=== PATIENT | male | born 1975 | race African-American/Black ===

== ENCOUNTER 2018-07-02 16:51 | Emergency (ER) | payer OTHER, SELFPAY ==
[2018-07-02 16:56] VITALS: BP 142/84; PULSE 68; RESP 16; TEMP 36.7; O2SAT 99
--- NOTE | 2018-07-02 17:38 | ED.GENADUL_ITS ---
Discharge Plan Disposition Patient Disposition: HOME Condition: Stable Discharge Details Chief Complaint: Nk/Back Pain Clinical Impression: Back pain due to injury Primary Care Provider: Oneyda Harris ED Provider: Naveen Morrison Home Meds and New Rx's Prescriptions: New ibuprofen [IBU] 600 mg tablet 600 mg PO QID PRN (Reason: pain) Qty: 20 RF: 0 cyclobenzaprine 10 mg tablet 10 mg PO TID PRN (Reason: muscle spasm) Qty: 10 RF: 0 No Action No Known Home Meds RF: 0 Discharge Instructions Instructions: Back Pain (ED) Additional Instructions: Return to the emergency department for any new or significant worsening of symptoms, any obvious blood in your urine, or any further concerns. Otherwise take ibuprofen and muscle relaxer as needed for discomfort and follow-up with your primary care provider as needed for reassessment. Referrals: Oneyda Harris [Primary Care Provider] - (As needed for reassessment) Discharge Data Discharge Date/Time-TO BE ENTERED AT DEPARTURE: 07/02/18 18:41 Medical Decision Making Patient presenting to the emergency department for chief complaint of left-sided back and flank pain. Patient states yesterday while at work he was backing up to take a picture and backed into a rounded cornered shelf. Since then he has had back discomfort that seems to worsen with movement and is moderate amount of pain constant but with some positional changes he does have sharp pain. Patient states that he thought it was a simple back injury until today when he noted some discoloration to his urine stating that it may have been more orange in color. Physical exam shows paraspinal tenderness to the left thoracic paraspinal region, normal compression and no tenderness to ribs, no vertebral tenderness or step-off deformity noted, no ecchymosis, no abrasion, no CVA tenderness, positive straight leg raise on the left and not on the right, normal abdominal exam, normal cardiac and respiratory exam as well. Patient has no neurological dysfunction lower to extremity. Given mechanism of injury and physical exam I feel that this is more consistent with soft tissue injury to the paraspinal muscles on the left thoracic lumbar spine. Have very low suspicion for renal injury even though patient states some discoloration of urine. Given this though I do plan on checking urinalysis but given low mechanism of injury I do not feel that patient needs emergent CT scan at this time unless urine is positive. Pending results patient given lidocaine patch and ibuprofen. Review of urinalysis shows high specific gravity, positive for proteins and ketones along with urobilinogen but otherwise negative for blood on both urine dip and microscopic analysis. This is otherwise unremarkable. I feel that patient is noting discoloration of urine may be more due to concentration than actual renal injury. Given this I discussed risk versus benefit with patient of CT imaging and my recommendation to hold on CT imaging at this time and to take another 24 hours to observe his discomfort while using ibuprofen and Flexeril for pain control. Patient was agreeable to this plan of care. Return precautions were discussed. After discussion of diagnosis and plan of care patient has no further needs, questions, or concerns and states clear understanding to return to the emergency department for any worsening symptoms. HPI General Mode of arrival: ambulatory . Date/Time Provider Initiated Documentation: 07/02/18 17:04 . Limitations to Documentation: no limitations . Information obtained by: patient . History of Present Illness 43 year old M p resents to the emergency department with the chief complaint of left back pain, with intensity rated at 5. Quality is described as aching and sharp, and is localized to the back. Patient started experiencing this day(s) (1) and it has been constant and intermittent (sharp). No relieving factors improve symptom(s), Movement worsens symptoms . Patient did receive the following treatments prior to arrival, none Related Data Home Medications Medication Instructions Recorded Confirmed Unknown [No Known Home Meds] 07/02/18 07/02/18 cyclobenzaprine 10 mg PO TID PRN #10 tab 07/02/18 ibuprofen [IBU] 600 mg PO QID PRN #20 tab 07/02/18 Previous Rx's Medication Instructions Recorded cyclobenzaprine 10 mg PO TID PRN #10 tab 07/02/18 ibuprofen [IBU] 600 mg PO QID PRN #20 tab 07/02/18 Allergies Allergy/AdvReac Type Severity Reaction Status Date / Time No Known Allergies Allergy Unverified 07/02/18 17:18 General Stated Complaint: Nk/Back Pain JENNIFER: 3 Review of Systems Constitutional Denies fever(s) Cardiovascular Denies chest pain and Denies dyspnea Respiratory Denies dyspnea Genitourinary Reports hematuria (possible) and Reports flank pain Musculoskeletal Denies abnormal gait, Reports back pain, Denies deformity, Denies muscle weakness and Denies radiating pain into limb Neurologic Denies abnormal gait PFSH Medical History Hyperlipidemia Hypertension Surgical History excision of ganglion cyst of right thumb (07/08/17) Social History Smoking/Tobacco Use Status: Former Tobacco Use Alcohol Intake: never Drug use: Never Do you feel safe at home: Yes Do you feel safe in your relationship?: Yes Exam Const General: cooperative, healthy appearing and no acute distress Orientation: alert, awake and oriented x3 Chest Chest: normal inspection of the chest, normal palpation of entire chest wall, no crepitus, no localized rib tenderness and No rash Resp Effort & Inspection: normal respiratory effort and able to speak in complete sentences Auscultation: clear to auscultation bilaterally Cardio Rate: regular rate Rhythm: regular rhythm Heart Sounds: S1 normal and S2 normal GI Inspection: normal to inspection Palpation: soft, no hepatosplenomegaly, not firm, no guarding, no masses, no pulsatile masses, not rigid and nontender Auscultation: normal bowel sounds Back/Spine/Pelvis Back: no CVA tenderness, No ecchymosis and No Avila-Wheeler sign present Cervical Spine: normal cervical lordosis and No step off deformity Thoracic/Lumbar Spine: thoracic and lumbar spine normal to inspection, paraspinal tenderness (L flank, lower thoracic), No scoliosis and straight leg raise positive (L leg) Skin Trauma: no lacerations or abrasions Neuro General: alert, awake, oriented x3, gait normal, tone normal, moves all extremities, normal light touch, pain and propioception, no focal motor deficits and deep tendon reflexes 2+ bilaterally Cognition: normal cognition Motor: muscle tone normal throughout and strength 5/5 throughout Course Vital Signs Temperature 36.7 C 07/02/18 16:56 Pulse 68 07/02/18 16:56 Respiratory Rate 16 07/02/18 16:56 Blood Pressure 142/84 H 07/02/18 16:56 Pulse Oximetry 99 07/02/18 16:56 Temperature 36.7 C 07/02/18 16:56 Temperature Source Skin 07/02/18 16:56 Pulse 68 07/02/18 16:56 Respiratory Rate 16 07/02/18 16:56 Respiratory Effort Non-Labored 07/02/18 16:58 Blood Pressure 142/84 H 07/02/18 16:56 Pulse Oximetry 99 07/02/18 16:56 Pain Level 6 07/02/18 16:56
[2018-07-02 17:49] LABS: Bilirubin Negative (Negative); Blood Negative (Negative); Clarity Clear; Glucose Negative (Negative); Ketones Trace mg/dL (Negative); Leukocyte Esterase Negative (Negative); Nitrite Negative (Negative); Specific Gravity >= 1.030 (1.005-1.025); pH 6.5 (5-8)
[2018-07-02 17:56] LABS: Bacteria Negative HPF (Negative); C & S Indicated? No; Casts Negative LPF (Negative); Crystals Negative HPF (Negative); Epithelial Cells Rare HPF (Negative); Mucus Trace (Negative); RBC 0-2 (0-2); WBC 0-2 HPF (0-5)
[2018-07-02] MEDS: Lidocaine 5% Patch 1 PATCH TP (18:10)
[2018-07-02] MEDS: Ibuprofen 600 MG TAB PO (18:10)
== END 2018-07-02 18:41 | disposition home or self-care (01) ==
PROVIDERS: Emergency Provider Nurse Practitioner Family; PCP Nurse Practitioner Family
DX: M54.5 Low back pain (principal); W22.8XXA Striking against or struck by other objects, initial encounter; I10 Essential (primary) hypertension
CPT/HCPCS: 99283; 81003; 81015

== ENCOUNTER 2020-12-02 16:51 | Outpatient (REF) | payer OTHER, SELFPAY ==
[2020-12-04 14:26] LABS: COVID-19 RT-PCR UVMMC Result Negative (Negative)
== END 2020-12-02 16:52 | disposition home or self-care (01) ==
LOC: NCHCN 16:51
PROVIDERS: Visit Provider Family Medicine
DX: Z20.822 Contact with and (suspected) exposure to COVID-19 (principal)
CPT/HCPCS: U0003

== ENCOUNTER 2022-06-10 13:31 | Emergency (ER) | payer OTHER, SELFPAY ==
[2022-06-10 13:37] VITALS: BP 143/84; PULSE 67; RESP 16; TEMP 36.7; O2SAT 98
--- NOTE | 2022-06-10 13:45 | DI.CT_ITS ---
Exam(s) CT BRAIN NECK CTA EXAM: CT BRAIN NECK CTA CLINICAL HISTORY: head injury, headache, blurry vision R eye. TECHNIQUE: Imaging Protocol: Axial CT angiography was performed with multi-slice acquisition and mu lti-planar and/or 3D reconstructions. CONTRAST MATERIAL: Intravenous: Omnipaque 350 contrast volume:85 mL COMPARISON: No exams were available for comparison FINDINGS: CT Head W/O and W: Ventricles and Extra axial spaces: Normal in size and morphology for the patient's age. Hemorrhage: None. Cerebral parenchyma: Normal. Midline shift: None. Brainstem/Cerebellum: Normal. Calvarium: Normal. Visualized Paranasal sinuses/Mastoids: Clear. Soft Tissues: Unremarkable. Enhancement: Unremarkable. CTA Neck W: Common Carotid: Right: No dissection, occlusion or significant stenosis. Left: No dissection, occlusion or significant stenosis. External Carotid: Right: No occlusion or significant stenosis. Left: No occlusion or significant stenosis. Internal Carotid: Right: No dissection, occlusion or significant stenosis. Left: No dissection, occlusion or significant stenosis. Vertebral Artery: Right: No dissection, occlusion or significant stenosis. Left: No dissection, occlusion or significant stenosis. Lung Apices: Normal. Bones: Within normal limits for the patient's age. Soft Tissues: Normal. Thyroid gland: Unremarkable. CTA Brain W: Internal Carotid Arteries: Normal. Anterior Cerebral Arteries: Right: No aneurysm, occlusion or significant stenosis. Left: No aneurysm, occlusion or significant stenosis. Middle Cerebral Arteries: Right: No aneurysm, occlusion or significant stenosis. Left: No aneurysm, occlusion or significant stenosis. Posterior Cerebral Arteries: Right: No aneurysm, occlusion or significant stenosis. Left: No aneurysm, occlusion or significant stenosis. Vertebral Arteries: Right: No aneurysm, occlusion or significant stenosis. Left: No aneurysm, occlusion or significant stenosis. Basilar Artery: No aneurysm, occlusion or significant stenosis. IMPRESSION: 1. No large vessel occlusion or significant stenosis on the CT angiography of the head. 2. No acute intracranial process. 3. No occlusion or significant stenosis on the CT angiography of the neck. 4. Findings were discussed with Dr. Schwab at 2:45 p.m. on 06/10/2022. RADIATION DOSE DELIVERED: 2,345.69mGy.cm Total DLP DATA REPOSITORY: All CT scans at this facility are submitted to the National Radiology Data Registry (NRDR) Dose Index Registry (DIR) with the [employer] (A[employer]). RADIATION OPTIMIZATION: All CT scans at this facility use at least one of these dose optimization te chniques: automated exposure control; mA and/or kV adjustment per patient size (includes targeted exa ms where dose is matched to clinical indication); or iterative reconstruction.
--- NOTE | 2022-06-10 13:56 | W.ED.GENAD ---
Discharge Plan Disposition Patient Disposition: Home Condition: Improving Discharge Details Clinical Impression: Closed head injury, Post-concussion syndrome, Blurry vision, right eye Primary Care Provider: Unknown,Unknown ED Provider: Gloria Schwab Home Meds and New Rx's Prescriptions: Continued ibuprofen [IBU] 600 mg tablet 600 mg PO QID PRN (Reason: pain) Qty: 20 0RF cyclobenzaprine 10 mg tablet 10 mg PO TID PRN (Reason: muscle spasm) Qty: 10 0RF Discharge Instructions Instructions: Head Injury (ED), Post Concussion Syndrome (ED) Additional Instructions: Your blood tests and imaging today are reassuring and show no evidence of acute concerning findings. Your blood sugar was mildly high today at 132. Please watch your sugar and simple carbohydrate intake and follow-up with your primary care doctor for recheck of your blood sugar as needed. Drink plenty of fluids and get plenty of rest. Alternate tylenol and motrin as needed and directed for pain. It is suspected that your blurry vision could be seen in the setting of a concussion. You have been placed on [facility]'s follow-up list for reevaluation of your right eye blurry vision. Follow-up with your primary care doctor in 1 week. Return to the emergency department with any worsening or new concerning symptoms. Referrals: [facility] [Outside] Discharge Data Discharge Physician: Gloria Schwab Medical Decision Making 47-year-old male with history of hypertension hyperlipidemia presents with headache, right eye blurry vision, pain behind his right eye and pain within and behind his right ear for the past week after hitting his head on the roof of a car at work. Visual acuity right eye 20/40, left eye 6/60 which is chronic and bilateral 20/50. Blood pressure moderately hypertensive, otherwise vitals within normal limits. Patient ambulated back to the ED while holding his work computer and appears in no acute distress. The lights are low in the room and he does endorse some photophobia but mostly with sunlight. He has exquisite tenderness at the top of his head but there is no evidence of laceration, abrasion or hematoma or rash. He has no fever, meningeal signs or altered mental status to suggest meningitis. He has no nasal congestion, rhinorrhea, sinus tenderness or TM erythema or fluid behind TM to suggest an acute ear or sinus infection. He has no midline spinal tenderness or focal deficits to suggest an acute cervical fracture or carotid dissection. Will obtain a CTA head and neck to rule out skull fracture, edema, bleed. Labs and imaging reviewed and unremarkable. His glucose is minimally elevated at 132. His CTA head and neck is negative. Will treat with IV fluids, IV Tylenol, IV Toradol and IV Decadron. Patient is requesting a work note as he states he is on the computer all day. He is advised to rest, minimize screen time with TV, laptop and phone, increase fluid intake and follow-up with his primary care doctor for reevaluation. Usual and customary return precautions given prior to discharge. Medical Records Medical records reviewed: Yes I reviewed the patient's medical records. Imaging Data Radiologic Study: Radiologist's impression: CT BRAIN ? NECK CTA CLINICAL HISTORY: ? head injury, headache, blurry vision R eye. ? TECHNIQUE:? Imaging Protocol:? Axial CT angiography was performed with multi-slice acquisition and multi-planar and/or 3D reconstructions. CONTRAST MATERIAL:? Intravenous: Omnipaque 350 contrast volume:85 mL COMPARISON:? No exams were available for comparison FINDINGS: CT Head W/O and W: Ventricles and Extra axial spaces: Normal in size and morphology for the patient's age. Hemorrhage: None. Cerebral parenchyma: Normal. Midline shift: None. Brainstem/Cerebellum: Normal. Calvarium: Normal. Visualized Paranasal sinuses/Mastoids: Clear. Soft Tissues: Unremarkable. Enhancement: Unremarkable.? CTA Neck W: Common Carotid: Right:? No dissection, occlusion or significant stenosis. Left:? No dissection, occlusion or significant stenosis. External Carotid: Right:? No occlusion or significant stenosis. Left:? No occlusion or significant stenosis. Internal Carotid: Right:? No dissection, occlusion or significant stenosis. Left:? No dissection, occlusion or significant stenosis. Vertebral Artery: Right:? No dissection, occlusion or significant stenosis. Left:? No dissection, occlusion or significant stenosis. Lung Apices: Normal. Bones: Within normal limits for the patient's age. Soft Tissues: Normal. Thyroid gland: Unremarkable. CTA Brain W: Internal Carotid Arteries: Normal.? Anterior Cerebral Arteries: Right:? No aneurysm, occlusion or significant stenosis. Left:? No aneurysm, occlusion or significant stenosis. Middle Cerebral Arteries: Right:? No aneurysm, occlusion or significant stenosis. Left:? No aneurysm, occlusion or significant stenosis. Posterior Cerebral Arteries: Right:? No aneurysm, occlusion or significant stenosis. Left:? No aneurysm, occlusion or significant stenosis. Vertebral Arteries: Right:? No aneurysm, occlusion or significant stenosis. Left:? No aneurysm, occlusion or significant stenosis. Basilar Artery:? No aneurysm, occlusion or significant stenosis. IMPRESSION: 1. No large vessel occlusion or significant stenosis on the CT angiography of the head.? 2. No acute intracranial process.? 3. No occlusion or significant stenosis on the CT angiography of the neck. Lab Data Lab results reviewed: Yes I reviewed the patient's lab results. Labs: Laboratory Tests Range/Units 06/10/22 06/10/22 14:00 14:00 WBC (4.4-10.8) 10^3/uL 7.39 RBC (4.36-5.78) 10^6/uL 5.05 Hgb (13.5-17.5) g/dL 14.8 Hct (40.0-50.0) % 42.4 MCV (80-95) fL 84 MCH (27.0-33.0) pg 29.3 MCHC (32.0-36.0) % 34.9 RDW (11.8-14.1) % 13.6 Plt Count (130-400) 10^3/uL 258 MPV (8.0-11.0) fL 10.5 Immature Gran % 0.5 Neutrophils % 63.8 Lymphocytes % 29.2 Monocytes % 4.6 Eosinophils % 1.4 Basophils % 0.5 Nucleated RBC % (0.0-0.3) % 0.0 Absolute Neutrophils (1.2-6.7) 10^3/uL 4.71 Absolute Lymphocytes (1.2-3.4) 10^3/uL 2.16 Absolute Monocytes (0.1-0.8) 10^3/uL 0.34 Absolute Eosinophils (0.0-0.7) 10^3/uL 0.10 Absolute Basophils (0.0-0.2) 10^3/uL 0.04 Sodium (136-145) mmol/L 145 Potassium (3.5-5.1) mmol/L 3.9 Chloride (98-107) mmol/L 106 Carbon Dioxide (21.0-32.0) mmol/L 31.7 Anion Gap (3-11) mmol/L 7.3 BUN (7-18) mg/dL 13 Creatinine (0.70-1.30) mg/dL 1.0 Est GFR (CKD-EPI 2020) (mL/min/1.73m2) 93.42 Glucose (74-106) mg/dL 132 H Calcium (8.5-10.1) mg/dL 9.5 Total Bilirubin (0.2-1.0) mg/dL 0.5 AST (15-37) U/L 27 ALT (16-63) U/L 49 Alkaline Phosphatase (46-116) U/L 77 Total Protein (6.4-8.2) g/dL 8.2 Albumin (3.4-5.0) g/dL 4.3 HPI General Mode of arrival: ambulatory. Date/Time Provider Initiated Documentation: 06/10/22 13:32. Limitations to Documentation: no limitations. Information obtained by: patient. HPI Narrative: Patient is a 47-year-old male with a history of hypertension hyperlipidemia who presents with headache, right eye blurry vision and tenderness to his scalp with pain behind his right eye and ear for the past week after hitting his head on the roof of a car. Patient states he hit his head on the roof of the car while at work a week ago. He denies loss of consciousness or vomiting at that time. He states since then he has had a headache on the top of his head that is significantly tender to light touch. He denies any laceration or bleeding at that time. He states since then the headache briefly improved and then returned a few days ago. He states the headache is worse at nighttime. He states he has chronic blurry vision in his left eye but states he is now experiencing blurry vision in his right eye for the past week. He states he feels the blurry vision is worse at nighttime. He denies any double vision, flashing lights or floaters. He is also now endorsing pain behind and within his right ear but denies any hearing loss or ear drainage. He took Advil a few days ago with relief but none since then. He denies any fever, nasal congestion, nasal discharge, sore throat, chest pain, difficulty breathing, nausea, vomiting or dizziness. Patient states he is on the computer frequently throughout every day for his job with [employer]. Related Data Home Medications Medication Instructions Recorded Confirmed cyclobenzaprine 10 mg tablet 10 mg PO TID PRN muscle spasm #10 07/02/18 06/10/22 tabs ibuprofen 600 mg tablet (IBU) 600 mg PO QID PRN pain #20 tabs 07/02/18 06/10/22 Previous Rx's Medication Instructions Recorded cyclobenzaprine 10 mg tablet 10 mg PO TID PRN muscle spasm #10 07/02/18 tabs ibuprofen 600 mg tablet (IBU) 600 mg PO QID PRN pain #20 tabs 07/02/18 Allergies Allergy/AdvReac Type Severity Reaction Status Date / Time No Known Allergies Allergy Unverified 06/10/22 13:46 General Stated Complaint: Headache JENNIFER: 3 Review of Systems All systems reviewed & are unremarkable except as noted in HPI and below Constitutional Constitutional: Reports as per HPI, Denies chills, Denies fever(s) and Reports headache(s) Eyes Eyes: Denies blurry vision ENT Ears, Nose, Mouth, and Throat: Denies dizziness, Reports headache(s), Denies sore throat and Denies throat swelling Cardiovascular Cardiovascular: Denies chest pain and Denies dyspnea Respiratory Respiratory: Denies cough and Denies dyspnea Gastrointestinal Gastrointestinal: Denies abdominal pain, Denies diarrhea and Denies vomiting Genitourinary Genitourinary: Denies hematuria and Denies dysuria Musculoskeletal Musculoskeletal: Denies back pain and Denies numbness Integumentary/Breasts Skin/Breast: Denies lesions and Denies rash Neurologic Neurologic: Denies dizziness, Reports headache(s), Denies localized weakness and Denies numbness Allergic/Immunologic Allergic/Immunologic: Denies throat swelling PFSH All Active Problems (Updated 06/10/22 @ 15:59 by Gloria Schwab DO) Closed head injury (Acute) Post-concussion syndrome (Acute) Blurry vision, right eye (Acute) Medical History (Updated 06/10/22 @ 15:59 by Gloria Schwab DO) Hyperlipidemia Hypertension Surgical History excision of ganglion cyst of right thumb (07/08/17) Social History Smoking/Tobacco Use Status: Former Tobacco Use Smoking risk assessment performed?: Yes Alcohol Intake: never Drug use: Never Substance use type: does not use Do you feel safe at home: Yes Do you feel safe in your relationship?: Yes Exam Const General: cooperative, healthy appearing and no acute distress Orientation: alert, awake and oriented x3 HENMT Head: normal to inspection Ears: hearing grossly normal bilaterally, external ears normal and TM's normal bilaterally General nose exam: external nose normal Face and sinus: normal facial exam and no sinus tenderness Mouth: oral mucosae normal Throat: posterior oropharynx normal Eyes General: appearance normal, both eyes and all related structures Pupils: PERRL EOM: EOM intact bilaterally Neck Neck: normal visual inspection and No submandibular swelling Lymphatic: no lymphadenopathy noted Chest Chest: normal inspection of the chest and no tenderness Resp Effort & Inspection: normal respiratory effort and able to speak in complete sentences Auscultation: clear to auscultation bilaterally Cardio Rate: regular rate Rhythm: regular rhythm GI Inspection: normal to inspection Palpation: soft, not firm, not rigid and nontender Auscultation: hypoactive bowel sounds Skin General skin exam: no rashes or lesions noted Neuro General: patient alert, patient awake, patient oriented x3, moves all extremities and no meningeal signs Cranial Nerves: CN's II-XI intact bilaterally Cognition: normal cognition Speech: speech normal Motor: muscle tone normal throughout and strength 5/5 throughout Sensory Exam: no sensory deficits noted Extrem General: normal to inspection, full ROM, capillary refill normal, no calf tenderness bilaterally and no edema Psych Appearance: grossly normal Mental Status: mental status grossly normal Speech and Movement: speech and movement normal Affect: normal affect Course Vital Signs Vital signs: Vital Signs Temperature 98.1 F 06/10/22 13:37 Pulse 67 06/10/22 13:37 Respiratory Rate 16 06/10/22 13:37 Blood Pressure 143/84 H 06/10/22 13:37 Pulse Oximetry 98 06/10/22 13:37 Temperature 98.1 F 06/10/22 13:37 Temperature Source Skin 06/10/22 13:37 Pulse 67 06/10/22 13:37 Respiratory Rate 16 06/10/22 13:37 Respiratory Effort Normal, Non-Labored 06/10/22 13:50 Blood Pressure 143/84 H 06/10/22 13:37 Blood Pressure Position Sitting 06/10/22 13:37 Pulse Oximetry 98 06/10/22 13:37 Oxygen Delivery Method Room Air 06/10/22 13:37 Oxygen Flow Rate 0 06/10/22 13:37 Pain Level 6 06/10/22 13:48
[2022-06-10] MEDS: Normal Saline 1,000 ML 1000 ML IV (14:07)
[2022-06-10 14:10] LABS: Abs Immature Grans 0.04 10^3/uL (0.0-0.06); Absolute Basophil Count 0.04 10^3/uL (0.0-0.2); Absolute Lymphocyte Count 2.16 10^3/uL (1.2-3.4); Absolute Monocyte Count 0.34 10^3/uL (0.1-0.8); Absolute Neutrophil Count 4.71 10^3/uL (1.2-6.7); Basophils % 0.5; Eosinophils % 1.4; HCT 42.4 % (40.0-50.0); HGB 14.8 g/dL (13.5-17.5); Immature Grans % 0.5; Lymphocytes % 29.2; MCH 29.3 pg (27.0-33.0); MCHC 34.9 % (32.0-36.0); MCV 84 fL (80-95); MPV 10.5 fL (8.0-11.0); Monocytes % 4.6; Neutrophils % 63.8; Platelet Count 258 10^3/uL (130-400); RBC 5.05 10^6/uL (4.36-5.78); RDW 13.6 % (11.8-14.1); RDW-SD 41.6 fL; WBC 7.39 10^3/uL (4.4-10.8)
[2022-06-10] MEDS: Normal Saline - Diluent 50 ML VIAL IJ (14:27)
[2022-06-10] MEDS: Omnipaque 350 MG/ML 100 ML BTL IJ (14:27)
[2022-06-10 14:32] LABS: ALT 49 U/L (16-63); AST 27 U/L (15-37); Albumin 4.3 g/dL (3.4-5.0); Alkaline Phosphatase 77 U/L (46-116); Anion Gap 7.3 mmol/L (3-11); BUN 13 mg/dL (7-18); Bilirubin, Total 0.5 mg/dL (0.2-1.0); CO2 31.7 mmol/L (21.0-32.0); Calcium 9.5 mg/dL (8.5-10.1); Chloride 106 mmol/L (98-107); Estimated GFR 93.42 (mL/min/1.73m2); Glucose 132 mg/dL (74-106); Potassium 3.9 mmol/L (3.5-5.1); Sodium 145 mmol/L (136-145); Total Protein 8.2 g/dL (6.4-8.2)
[2022-06-10] MEDS: Normal Saline Flush 10 ML SYR IVP (14:34)
[2022-06-10] MEDS: Dexamethasone 10 MG/ML VIAL IVP (15:00)
[2022-06-10] MEDS: Ketorolac 30 MG/ML VIAL IVP (15:00)
[2022-06-10] MEDS: ACETAMINOPHEN 1,000 MG/100 ML BTL 400 MG IVPB (15:00)
[2022-06-10 16:01] VITALS: BP 135/63; PULSE 66; RESP 16; O2SAT 99
== END 2022-06-10 16:20 | disposition home or self-care (01) ==
PROVIDERS: Emergency Provider Physician Assistant
DX: S09.8XXA Other specified injuries of head, initial encounter (principal); W22.8XXA Striking against or struck by other objects, initial encounter; F07.81 Postconcussional syndrome; H53.8 Other visual disturbances; R51.9 Headache, unspecified
CPT/HCPCS: 36415; 70496; 70498; 80053; 96361; 96365; 96375; 99285; 85025; 99284; J0131; J1100; J1885; J3490

== ENCOUNTER 2023-01-07 15:16 | Outpatient (REF) | payer OTHER, SELFPAY ==
[2023-01-07 16:50] LABS: ALT 74 U/L (16-63); AST 37 U/L (15-37); Albumin 4.1 g/dL (3.4-5.0); Alkaline Phosphatase 78 U/L (46-116); Anion Gap 7.6 mmol/L (3-11); BUN 11 mg/dL (7-18); Bilirubin, Total 0.4 mg/dL (0.2-1.0); CO2 30.4 mmol/L (21.0-32.0); Calcium 9.5 mg/dL (8.5-10.1); Calculated LDL 246 mg/dL (<100); Chloride 106 mmol/L (98-107); Cholesterol 341 mg/dL (<200); Estimated GFR 93.42 (mL/min/1.73m2); Glucose 113 mg/dL (74-106); HDL Cholesterol 44 mg/dL (40-60); Magnesium 1.8 mg/dL (1.8-2.4); Potassium 5.1 mmol/L (3.5-5.1); Sodium 144 mmol/L (136-145); Total Protein 7.8 g/dL (6.4-8.2); Triglyceride 259 mg/dL (<150)
== END 2023-01-07 15:17 | disposition home or self-care (01) ==
LOC: NCHCN 15:16
PROVIDERS: Visit Provider Nurse Practitioner Family
DX: Z00.00 Encounter for general adult medical examination without abnormal findings (principal)
CPT/HCPCS: 80053; 80061; 83735

== ENCOUNTER 2023-12-15 19:00 | Outpatient (CLI) | payer OTHER, SELFPAY ==
--- NOTE | 2023-12-15 19:15 | DI.RAD_ITS ---
Exam(s) XR CHEST 2V PA LATERAL EXAM: XR CHEST 2V PA LATERAL CLINICAL HISTORY: R05.9: Cough, unspecified TECHNIQUE: 2D digital imaging was performed of the chest. Two images were obtained. PA and lateral views were obtained. COMPARISON: No exams were available for comparison FINDINGS: MEDIASTINUM: Normal. HEART: Normal. PULMONARY VASCULATURE: Normal. LUNGS: There is an infiltrate in the right middle lobe. PLEURAL SPACE: No pleural effusion or pneumothorax. BONE:Within normal limits for the patient's age. OTHER FINDINGS:Normal. IMPRESSION: Right middle lobe infiltrate which may represent atelectasis or pneumonia. Please correlate clinical ly. DATA REPOSITORY: RADIATION DOSE DELIVERED:
--- NOTE | 2023-12-15 20:41 | DI.VRAD_ITS ---
PROCEDURE INFORMATION: Exam: XR Chest Exam date and time: 12/15/2023 7:29 PM Age: 48 years old Clinical indication: Cough TECHNIQUE: Imaging protocol: Radiologic exam of the chest. Views: 2 views. COMPARISON: CT BRAIN NECK CTA 06/10/2022 2:18 PM FINDINGS: Lungs: There is subtle increased linear density that appears to be in the medial segment of the right middle lobe and may represent subsegmental atelectasis. There is no consolidation. Pleural spaces: No effusions or pneumothoraces. Heart/Mediastinum: The heart is normal in size. The superior mediastinum is unremarkable. Bones/joints: No acute bony change of the ribs or thoracic spine. IMPRESSION: 1. Mild increased density that appears to represent subsegmental atelectasis in the medial segment of the right middle lobe. Dictated and Authenticated by: Tito Escobedo MD. Ordering:DAKOTA Rascon MD
== END 2023-12-15 19:20 ==
PROVIDERS: Visit Provider Physician Assistant Medical
DX: R91.8 Other nonspecific abnormal finding of lung field (principal); R05.9 Cough, unspecified
CPT/HCPCS: 71046

== ENCOUNTER 2023-12-15 22:14 | Outpatient (REF) | payer OTHER, SELFPAY ==
[2023-12-15 22:51] LABS: COVID-19 PCR Negative (Negative); Influenza A PCR Negative (Negative); Influenza B PCR Negative (Negative); RSV PCR Negative (Negative)
[2023-12-15 23:32] LABS: Source Nasopharynx
== END 2023-12-15 22:15 | disposition home or self-care (01) ==
LOC: LBN 22:14
PROVIDERS: Visit Provider Physician Assistant Medical
DX: R50.9 Fever, unspecified (principal)
CPT/HCPCS: 87637; 87070

== ENCOUNTER 2024-01-13 22:17 | Outpatient (REF) | payer OTHER, SELFPAY ==
[2024-01-13 22:21] LABS: Hemoglobin A1C 5.9 % (<5.7)
[2024-01-13 22:23] LABS: ALT 60 U/L (16-63); AST 34 U/L (15-37); Albumin 4.5 g/dL (3.4-5.0); Alkaline Phosphatase 103 U/L (46-116); BUN 11 mg/dL (7-18); Bilirubin, Total 0.84 mg/dL (0.2-1.0); Calcium 9.5 mg/dL (8.5-10.1); Calculated LDL 118 mg/dL (<100); Chloride 106 mmol/L (98-107); Cholesterol 207 mg/dL (<200); Estimated GFR 92.84 (mL/min/1.73m2); Glucose 79 mg/dL (74-106); HDL Cholesterol 48 mg/dL (40-60); Potassium 4.4 mmol/L (3.5-5.1); Sodium 145 mmol/L (136-145); Triglyceride 208 mg/dL (<150)
== END 2024-01-13 22:18 | disposition home or self-care (01) ==
LOC: NCHCN 22:17
PROVIDERS: Visit Provider Family Medicine
DX: Z00.00 Encounter for general adult medical examination without abnormal findings (principal); R73.9 Hyperglycemia, unspecified; E78.5 Hyperlipidemia, unspecified
CPT/HCPCS: 80053; 80061; 83036

== ENCOUNTER 2024-06-08 02:46 | Outpatient (CLI) | payer OTHER, SELFPAY ==
--- NOTE | 2024-06-08 | DI.MRI_ITS ---
Exam(s) MR LOWER JOINT LT WO EXAM: MR LOWER JOINT LT WO CLINICAL HISTORY: LT KNEE PAIN,[id number].workmans comp. TECHNIQUE: Multiplanar multisequence MRI was performed. COMPARISON: No exams were available for comparison FINDINGS: BONES: There is no fracture or contusion pattern. JOINTS: Articular cartilage is unremarkable. There is a very small joint effusion. There is a small effusion in the proximal femoral tibial tibial fibular joint. TENDONS: Extensor mechanism: Unremarkable. Medial retinaculum: Unremarkable. Lateral retinaculum: Unremarkable. Popliteus: Unremarkable. MUSCLES: Unremarkable. MENISCI: Degenerative signal is seen in the posterior horn of the medial meniscus. No evidence of a tear is seen. The lateral meniscus is unremarkable. SOFT TISSUES: Unremarkable. LIGAMENTS: Anterior Cruciate: Unremarkable. Posterior Cruciate: Unremarkable. Medial Collateral:Unremarkable. Lateral Collateral: Unremarkable. OTHER: IMPRESSION: No evidence of a meniscal or ligament tear. DATA REPOSITORY:
== END 2024-06-08 03:06 ==
PROVIDERS: PCP Family Medicine; Visit Provider Family Medicine
DX: M25.562 Pain in left knee (principal)
CPT/HCPCS: 73721